=== PATIENT | male | born 1990 | race Caucasian/White ===

== ENCOUNTER 2017-01-30 07:50 | Emergency (ER) | payer BC, OTHER ==
--- NOTE | 2017-01-30 08:38 | EDM.PDOC ---
ED HPI GENERAL MEDICAL PROBLEM - General Chief Complaint: Neurological Problem Stated Complaint: SEIZURE Time Seen by Provider: 01/30/17 08:23 Source of Information: Reports: Patient, EMS, RN Notes Reviewed History Limitations: Reports: No Limitations - History of Present Illness INITIAL COMMENTS - FREE TEXT/NARRATIVE: 26-year-old gentleman presents emergency department day with apparent seizure type episode he was at work, by report from coworkers he fell to the ground had general tonic-clonic movements, was confused after the event unable to answer any questions, by the time EMS arrived he was still confused not appropriately answered questions but in route became oriented. At this time he is complaining of a headache he does have a bruise on the back this head denies any neck pain or any other symptoms states he's had a seizure about once per year last was in the fall of 2015 has never been evaluated by neurology has never taken any antiseizure medications has never had a workup Posterior Head Pain Score (Numeric/FACES): 1 - Related Data Allergies Allergy/AdvReac Type Severity Reaction Status Date / Time No Known Allergies Allergy Verified 01/24/15 05:48 Home Meds: Home Meds NK [No Known Home Meds] 01/30/17 [History] Past Medical History Other Musculoskeletal History: L SHOULDER REPAIR Neurological History: Reports: Seizure - Past Surgical History GI Surgical History: Reports: Bariatric Procedure Social & Family History - Tobacco Use Smoking Status *Q: Never Smoker Years of Tobacco use: 5 Second Hand Smoke Exposure: No - Caffeine Use Caffeine Use: Reports: Coffee, Soda, Tea - Alcohol Use Days Per Week of Alcohol Use: 4 Number of Drinks Per Day: 4 Total Drinks Per Week: 16 - Recreational Drug Use Recreational Drug Use: No ED ROS GENERAL - Review of Systems Review Of Systems: See Below Constitutional: Reports: No Symptoms HEENT: Reports: No Symptoms Respiratory: Reports: No Symptoms Cardiovascular: Reports: No Symptoms GI/Abdominal: Reports: No Symptoms : Reports: No Symptoms Neurological: Reports: Headache, Seizure ED EXAM, NEURO - Physical Exam Exam: See Below Text/Narrative:: General: Male, not in any distress, alert and oriented x3 HEENT: head is abrasion and hematoma noted on the posterior aspect occipital region left side normocephalic, eyes pupils equal round reactive to light, sclera clear no conjunctivitis appreciated. Ears tympanic membranes clear and castillo landmarks and light reflex are present bilaterally canals are clear. Nose no septal deviation, nares are clear, no blood present. Mouth mucosa is moist and pink no erythema or exudate noted in soft palate, tongue is midline uvula is midline , dentition is intact. Neck: Supple no thyromegaly no tracheal deviation. Nodes: Cervical nodes subclavicular nodes nontender no palpable lymphadenopathy noted. Lungs: clear to auscultation bilaterally with symmetrical respirations, no adventitious noise appreciated. CV: Regular rate and rhythm S1 and S2 appreciated no murmurs rubs or gallops noted. Abdomen: Soft, nontender, no palpable masses or organomegaly appreciated, no distention no guarding bowel sounds are present, [scars ]. Neuro: Cranial nerves II through XII grossly intact Course - Vital Signs Last Recorded V/S: Last Vital Signs Temp 98.1 F 01/30/17 08:02 Pulse 103 H 01/30/17 08:02 Resp 15 01/30/17 08:02 BP 162/95 H 01/30/17 08:02 Pulse Ox 99 01/30/17 08:02 - Orders/Labs/Meds Labs: Laboratory Tests 01/30/17 01/30/17 01/30/17 Range/Units 08:44 08:44 09:06 WBC 7.6 (4.5-11.0) K/uL RBC 4.53 (4.30-5.90) M/uL Hgb 15.2 H (12.0-15.0) g/dL Hct 43.2 (40.0-54.0) % MCV 95 (80-98) fL MCH 34 H (27-31) pg MCHC 35 (32-36) % Plt Count 216 (150-400) K/uL Neut % (Auto) 82 H (36-66) % Lymph % (Auto) 8 L (24-44) % [place] % (Auto) 8 H (2-6) % Eos % (Auto) 1 L (2-4) % Baso % (Auto) 1 (0-1) % Sodium 138 L (140-148) mmol/L Potassium 4.1 (3.6-5.2) mmol/L Chloride 102 (100-108) mmol/L Carbon Dioxide 30 (21-32) mmol/L Anion Gap 10.1 (5.0-14.0) mmol/L BUN 13 (7-18) mg/dL Creatinine 1.1 (0.8-1.3) mg/dL Est Cr Clr Drug Dosing 100.18 mL/min Estimated GFR (MDRD) > 60 (>60) Glucose 84 (74-106) mg/dL Calcium 8.8 (8.5-10.1) mg/dL Phosphorus 2.1 L (2.5-4.9) mg/dL Magnesium 2.2 (1.8-2.4) mg/dL Total Bilirubin 0.4 (0.2-1.0) mg/dL AST 20 (15-37) U/L ALT 22 (12-78) U/L Alkaline Phosphatase 72 (46-116) U/L Total Protein 7.0 (6.4-8.2) g/dL Albumin 3.7 (3.4-5.0) g/dL Globulin 3.3 (2.3-3.5) g/dL Albumin/Globulin Ratio 1.1 L (1.2-2.2) Urine Color Yellow Urine Appearance Clear Urine pH 6.0 (4.5-8.0) Ur Specific [place] 1.020 (1.008-1.030) Urine Protein Trace (NEGATIVE) mg/dL Urine Glucose (UA) Normal (NEGATIVE) mg/dL Urine Ketones Negative (NEGATIVE) mg/dL Urine Occult Blood Negative (NEGATIVE) Urine Nitrite Negative (NEGAITVE) Urine Bilirubin Negative (NEGATIVE) Urine Urobilinogen Normal (NORMAL) mg/dL Ur Leukocyte Esterase Negative (NEGATIVE) Urine RBC Not seen (0-5) Urine WBC Not seen (0-5) Ur Epithelial Cells Not seen Amorphous Sediment Not seen Urine Bacteria Not seen Urine Mucus Not seen Urine Opiates Screen (NEGATIVE) Ur Oxycodone Screen (NEGATIVE) Urine Methadone Screen (NEGATIVE) Ur Propoxyphene Screen (NEGATIVE) Ur Barbiturates Screen (NEGATIVE) Ur Tricyclics Screen (NEGATIVE) Ur Phencyclidine Scrn (NEGATIVE) Ur Amphetamine Screen (NEGATIVE) U Methamphetamines Scrn (NEGATIVE) Urine MDMA Screen (NEGATIVE) U Benzodiazepines Scrn (NEGATIVE) U Cocaine Metab Screen (NEGATIVE) U Marijuana (THC) Screen (NEGATIVE) 01/30/17 Range/Units 09:06 WBC (4.5-11.0) K/uL RBC (4.30-5.90) M/uL Hgb (12.0-15.0) g/dL Hct (40.0-54.0) % MCV (80-98) fL MCH (27-31) pg MCHC (32-36) % Plt Count (150-400) K/uL Neut % (Auto) (36-66) % Lymph % (Auto) (24-44) % [place] % (Auto) (2-6) % Eos % (Auto) (2-4) % Baso % (Auto) (0-1) % Sodium (140-148) mmol/L Potassium (3.6-5.2) mmol/L Chloride (100-108) mmol/L Carbon Dioxide (21-32) mmol/L Anion Gap (5.0-14.0) mmol/L BUN (7-18) mg/dL Creatinine (0.8-1.3) mg/dL Est Cr Clr Drug Dosing mL/min Estimated GFR (MDRD) (>60) Glucose (74-106) mg/dL Calcium (8.5-10.1) mg/dL Phosphorus (2.5-4.9) mg/dL Magnesium (1.8-2.4) mg/dL Total Bilirubin (0.2-1.0) mg/dL AST (15-37) U/L ALT (12-78) U/L Alkaline Phosphatase (46-116) U/L Total Protein (6.4-8.2) g/dL Albumin (3.4-5.0) g/dL Globulin (2.3-3.5) g/dL Albumin/Globulin Ratio (1.2-2.2) Urine Color Urine Appearance Urine pH (4.5-8.0) Ur Specific [place] (1.008-1.030) Urine Protein (NEGATIVE) mg/dL Urine Glucose (UA) (NEGATIVE) mg/dL Urine Ketones (NEGATIVE) mg/dL Urine Occult Blood (NEGATIVE) Urine Nitrite (NEGAITVE) Urine Bilirubin (NEGATIVE) Urine Urobilinogen (NORMAL) mg/dL Ur Leukocyte Esterase (NEGATIVE) Urine RBC (0-5) Urine WBC (0-5) Ur Epithelial Cells Amorphous Sediment Urine Bacteria Urine Mucus Urine Opiates Screen Negative (NEGATIVE) Ur Oxycodone Screen Negative (NEGATIVE) Urine Methadone Screen Negative (NEGATIVE) Ur Propoxyphene Screen Negative (NEGATIVE) Ur Barbiturates Screen Negative (NEGATIVE) Ur Tricyclics Screen Negative (NEGATIVE) Ur Phencyclidine Scrn Negative (NEGATIVE) Ur Amphetamine Screen Negative (NEGATIVE) U Methamphetamines Scrn Negative (NEGATIVE) Urine MDMA Screen Negative (NEGATIVE) U Benzodiazepines Scrn Negative (NEGATIVE) U Cocaine Metab Screen Negative (NEGATIVE) U Marijuana (THC) Screen Negative (NEGATIVE) Meds: Medications Discontinued Medications Generic Name Dose Route Start Last Admin Trade Name Jose Armando PRN Reason Stop Dose Admin Levetiracetam 1,500 mg 01/30/17 09:46 Keppra PO 01/30/17 09:47 NOW STA Departure - Departure Time of Disposition: 09:48 Disposition: Home, Self-Care 01 Condition: Good Clinical Impression: Seizure disorder - Discharge Information Forms: ED Department Discharge Additional Instructions: Recommend start taking seizure medication 1 tablet twice a day, please refrain from driving until reevaluated by neurology, follow-up with your primary care provider in the next 2-3 days for reevaluation and referral to neurology - Assessment/Plan Plan: Assessment Acuity = acute Site and laterality = seizure disorder Etiology = unclear etiology Manifestations = tonic-clonic seizures Location of injury = Home Lab values = CBC, CMP within normal limits phosphor low at 2.1 consistent with hypophosphatemia urinalysis urine drug screen all negative CT scan head shows no acute process Plan I did review options with him recommended he refrain from driving until reevaluated by neurology I am going to start Keppra on him 500 mg by mouth twice a day did receive a loading dose of 1500 mg by mouth then to follow-up with his primary care provider in the next 2-3 days for reevaluation and then consultation with neurology Patient was in agreement with the plan all questions were answered, they were instructed to return to the emergency department or call for worsening symptoms. This note was dictated using [employer] voice recognition software please call with any questions.
--- NOTE | 2017-01-30 09:09 | CT ---
Head wo Cont Total DLP 790 mGycm. INDICATION: head injury post seizure COMPARISON: None. FINDINGS: No acute intracranial hemorrhage, mass, or edema. Mild/moderate mucosal thickening in the paranasal sinuses. Mastoid air cells are clear. Exam otherwise unremarkable. IMPRESSION: No acute intracranial abnormality.
[2017-01-30] MEDS ORDERED: levETIRAcetam 250 MG Tab PO STA (09:46)
[2017-01-30 09:49] VITALS: BP 160/75
== END 2017-01-30 10:07 | disposition home or self-care (01) ==
LOC: JP.ED 07:50
DX: G40.909 Epilepsy, unspecified, not intractable, without status epilepticus (principal); Z98.84 Bariatric surgery status
CPT/HCPCS: 36415; 70450; 80053; 80305; 81001; 83735; 84100; 85025; 99285; A9270

== ENCOUNTER 2022-07-30 17:48 | Emergency (ER) | payer BC, MEDICAID, OTHER ==
[2022-07-30] MEDS ORDERED: Thiamine 200 MG/2 ML MDV IVPUSH ONE (18:12)
[2022-07-30 18:22] VITALS: PULSE 96
[2022-07-30 21:55] VITALS: BP 157/98
== END 2022-07-30 23:49 | disposition home or self-care (01) ==
LOC: JP.ED 17:48
DX: F10.10 Alcohol abuse, uncomplicated (principal); Z20.822 Contact with and (suspected) exposure to COVID-19
CPT/HCPCS: 36415; 80305; 80307; 87635; 96374; 99284; J3411; 99283; U0002

== ENCOUNTER 2022-10-19 16:36 | Emergency (ER) | payer MEDICAID ==
[2022-10-19 16:48] VITALS: BP 137/93; PULSE 97
[2022-10-19] MEDS ORDERED: Gabapentin 300 MG Cap PO ONE (16:52)
[2022-10-19 17:25] LABS: ESTIMATED GFR 93 mL/min (>60)
== END 2022-10-19 17:43 ==
LOC: JP.ED 16:36
DX: F10.231 Alcohol dependence with withdrawal delirium (principal); I10 Essential (primary) hypertension; Z72.0 Tobacco use; Z79.899 Other long term (current) drug therapy
CPT/HCPCS: 36415; 80053; 85025; 99285; A9270

== ENCOUNTER 2022-10-20 07:37 | Emergency (ER) | payer MEDICAID ==
[2022-10-20] MEDS ORDERED: Sodium Chloride 0.9% 10 ML Syringe FLUSH PRN (07:49)
[2022-10-20] MEDS ORDERED: MVI, Adult with Vitamin K 10 ML, Thiamine 200 MG, Folic Acid 1 MG, Magnesium Sulfate 2 ... IV ONE ×10 (07:50→08:15)
[2022-10-20 08:27] LABS: ESTIMATED GFR 83 mL/min (>60)
[2022-10-20 12:26] VITALS: BP 153/84; PULSE 77
== END 2022-10-20 12:38 ==
LOC: JP.ED 07:37
DX: F10.131 Alcohol abuse with withdrawal delirium (principal); I10 Essential (primary) hypertension
CPT/HCPCS: 36415; 70450; 80053; 80143; 80179; 80307; 82140; 83605; 85025; 96365; 96366; 99285; J3411; J3475; J7121; J3490

== ENCOUNTER 2025-05-13 09:29 | Emergency (ER) | payer OTHER ==
[2025-05-13 09:36] VITALS: BP 152/93; PULSE 95
== END 2025-05-13 10:05 | disposition home or self-care (01) ==
LOC: JP.ED 09:29
DX: G40.909 Epilepsy, unspecified, not intractable, without status epilepticus (principal); I10 Essential (primary) hypertension; Z98.84 Bariatric surgery status
CPT/HCPCS: 99284